=== PATIENT | female | born 1985 | race Caucasian/White ===

== ENCOUNTER 2018-12-30 15:00 | Emergency (ER) | payer MEDICAID ==
[~2018-12-30] VITALS: Ht 162.6 cm; Wt 53.0 kg
[2018-12-30 15:02] VITALS: BP 113/68
[2018-12-30] MEDS ORDERED: LIDOCAINE-MPF 1%, 5ML INFIL ONE (15:30)
[2018-12-30] MEDS ORDERED: IBUPROFEN 200 MG TABLET ONE (16:00)
[2018-12-30] MEDS ORDERED: LIDOCAINE-MPF 1%, 5ML ONE (16:00)
--- NOTE | 2018-12-30 16:00 | NUR ---
STEPPED ON GLASS WITH LACERATION BOTTOM OF FOOT.
[2018-12-30] MEDS ORDERED: IBUPROFEN 200 MG TABLET PO ONE (16:30)
--- NOTE | 2018-12-30 16:51 | NUR ---
AFTER WOUND CLEANED REPAIRED AND DRESSED PT GIVEN CRUTCHES AND DISCHARGE PAPERS. PT AMBULATED TO DISCHARGE WINDOW WITH USE OF CRUTCHES, STEADY GAIT
== END 2018-12-30 16:53 | disposition home or self-care (01) ==
LOC: ED 16:35
DX: S91.312A Laceration without foreign body, left foot, initial encounter (principal); F17.200 Nicotine dependence, unspecified, uncomplicated; W25.XXXA Contact with sharp glass, initial encounter; Y93.89 Activity, other specified; Y92.830 Public park as the place of occurrence of the external cause; Y99.8 Other external cause status
CPT/HCPCS: 12041; 99284

== ENCOUNTER 2019-02-06 09:56 | Emergency (ER) | payer MEDICAID ==
[~2019-02-06] VITALS: Ht 162.6 cm; Wt 56.7 kg
--- NOTE | 2019-02-06 10:26 | NUR ---
Pain with intercourse x 1 year. OVER THE LAST 7 DAYS NOW W/ SAME PAIN AT ALL TIMES. DENIES PREGANACY/VAGINAL BLEEDING. REPORTS HX OF CERVICAL CANCER AT AGE 13. DENIES PAIN W/ URINATION HAS HAD SAME INTIMATE PARTNER FOR 4 YEARS PROVIDER TO BEDSIDE FOR PELVIC EXAM.
[2019-02-06 10:43] LABS: CLUE CELLS NONE SEEN (NONE SEEN); WET PREP WBCS NONE SEEN (FEW)
[2019-02-06 10:46] LABS: BASOPHILS # (AUTO) 0.03 x10^3/uL (0-0.1); BASOPHILS % (AUTO) 1 % (0-1); EOSINOPHILS % (AUTO) 4 % (1-7); LYMPHOCYTES # (AUTO) 1.53 x10^3/uL (1-3.4); LYMPHOCYTES % (AUTO) 27 % (22-44); MD NO; MEAN CORPUSCULAR HEMOGLOBIN 29.6 pg (27.0-34.8); MEAN CORPUSCULAR HGB CONC 32.4 g/dL (32.4-35.8); MEAN CORPUSCULAR VOLUME 91.3 fL (80-100); MEAN PLATELET VOLUME 8.1 fL (7.4-10.4); MONOCYTES % (AUTO) 7 % (2-9); NEUTROPHILS # (AUTO) 3.42 x10^3/uL (1.8-6.8); NEUTROPHILS % (AUTO) 61 % (42-75); PLATELET COUNT 200 x10^3/uL (130-400); RED BLOOD COUNT 4.15 x10^6/uL (3.82-5.3)
[2019-02-06 10:55] LABS: ANION GAP 4 mmol/L (5-15); CALCIUM 8.6 mg/dL (8.5-10.1); CHLORIDE 109 mmol/L (98-107); CREATININE 0.93 mg/dL (0.55-1.02)
--- NOTE | 2019-02-06 11:01 | NUR ---
URINE SENT PATIENT DEFERRING PAIN MEDICATION RESTING COMFORTABLY ON GURNERY AWAITING TESTING RESULTS PROVIDED ESTIMATED POC
[2019-02-06 11:25] LABS: CULTURE INDICATED? NO; MICROSCOPIC NOT IND
--- NOTE | 2019-02-06 11:48 | NUR ---
TO ULTRASOUND REMAINS ASYMPTOMATIC
--- NOTE | 2019-02-06 12:30 | NUR ---
WITH REASSESSMENT- PATIENT REPORTS PAIN REMAINS 0/10 PROVIDED WITH WATER/ESTUIMATED POC (WAITING ON US READ)
--- NOTE | 2019-02-06 13:18 | NUR ---
WITH REASSESSMENT- PATIENT REPORTS PAIN REMAINS 0/10 SPOKE W/ PROVIDER IN R/T PLAN- DISPO SHORTLY
[2019-02-06 13:35] VITALS: BP 111/54
== END 2019-02-06 13:38 | disposition home or self-care (01) ==
LOC: ED 12:35
DX: N94.10 Unspecified dyspareunia (principal); R10.2 Pelvic and perineal pain
CPT/HCPCS: 36415; 76830; 80048; 81003; 82040; 84703; 85025; 87210; 87491; 87591; 87808; 99284